=== PATIENT | female | born 1995 | race Caucasian/White ===

== ENCOUNTER 2017-04-28 19:32 | Emergency (ER) | payer MEDICAID | END 2017-04-28 20:45 | disposition home or self-care (01) | LOC: D.ER 19:32 → EDBD 19:32 → D.ER 20:45 | DX: T78.49XA Other allergy, initial encounter (principal); X58.XXXA Exposure to other specified factors, initial encounter ==

== ENCOUNTER 2017-05-18 16:15 | Emergency (ER) | payer MEDICAID | END 2017-05-18 18:12 | disposition home or self-care (01) | LOC: D.ER 16:15 | DX: S39.012A Strain of muscle, fascia and tendon of lower back, initial encounter (principal); V43.52XA Car driver injured in collision with other type car in traffic accident, initial encounter; Y93.89 Activity, other specified; Y92.410 Unspecified street and highway as the place of occurrence of the external cause; S16.1XXA Strain of muscle, fascia and tendon at neck level, initial encounter; M62.830 Muscle spasm of back ==

== ENCOUNTER 2017-07-25 14:26 | Emergency (ER) | payer MEDICAID ==
[2017-07-25 15:19] LABS: APPEARANCE CLEAR (CLEAR); COLOR YELLOW (YELLOW)
[2017-07-25 15:20] LABS: BILIRUBIN NEGATIVE (NEGATIVE); GLUCOSE NEGATIVE (NEGATIVE); KETONE NEGATIVE (NEGATIVE); NITRITE NEGATIVE (NEGATIVE); PROTEIN NEGATIVE (NEGATIVE); UROBILINOGEN NORMAL (NORMAL)
[2017-07-25 15:21] LABS: BACTERIA FEW /hpf (NONE SEEN); EPITHELIAL CELLS 0-5 /hpf (0-5); MUCUS <1+ /lpf (NONE SEEN); RED CELLS - URINE 0-5 /hpf (0-5)
== END 2017-07-25 16:00 | disposition home or self-care (01) ==
LOC: D.ER 14:26
PROVIDERS: Emergency Medicine
DX: N39.0 Urinary tract infection, site not specified (principal)